=== PATIENT | female | born 1950 | race Caucasian/White ===

== ENCOUNTER 2016-07-27 05:30 | Day surgery (SDC) | payer OTHER ==
[~2016-07-27 05:30] MED LIST: CEFAZOLIN SODIUM 2 GRAM PREMIX 100 ML IV PRN; METRONIDAZOLE IV PRN; NS IV PRN
[2016-07-27] MEDS ORDERED: LACTATED RINGERS 1,000 ML ONE (05:39)
[2016-07-27] MEDS ORDERED: IV START KIT ONE (05:40)
[2016-07-27] MEDS ORDERED: CEFAZOLIN SODIUM 2 GRAM PREMIX 100 ML IV ONE (05:40)
[2016-07-27] MEDS ORDERED: PROPOFOL 20 ML IV ONE (06:52)
[2016-07-27] MEDS ORDERED: LIDOCAINE 2% (PRES FREE) 5 ML VIAL ONE (06:55)
[2016-07-27] MEDS ORDERED: ROCURONIUM BROMIDE 10 MG/ML DOSE IV ONE ×10 (06:55)
[2016-07-27] MEDS ORDERED: FENTANYL 100 MCG/2 ML VIAL ONE (06:57)
[2016-07-27] MEDS ORDERED: MIDAZOLAM HCL 5 MG/5 ML VIAL ONE (06:57)
[2016-07-27] MEDS ORDERED: ROPIVACAINE 0.5% 30 ML VIAL ONE (07:08)
[2016-07-27] MEDS ORDERED: NERVE BLOCK PROCEDURAL TRAY 1 EACH ONE (07:09)
[2016-07-27] MEDS ORDERED: LUBRICANT EYE OINTMENT (PF) 10 APPLIC TUBE ONE (08:24)
--- NOTE | 2016-07-27 08:57 | HP ---
DATE OF CLINIC: 07/24/2016 CLAU JACKSON : 1950 PLANNED PROCEDURE: Right Shoulder Arthroscopy with Possible Rotator Cuff Repair, Debridement, Biceps Tenodesis and Subacromial Decompression DATE OF SURGERY: July 27, 2016 SURGEON: Rashid Sánchez M.D. HISTORY OF PRESENT ILLNESS Clau Jackson is a 65 year old female. * Medication list reviewed with patient allergy list reviewed with patient. * Has not tried NSAIDS * Has not tried Physical Therapy * Has not tried Injections The patient is a 65-year-old left-hand dominant patient who I have treated for a left intra-articular distal radius fracture, who also has concomitant large rotator cuff tear on the right side. The patient has a known diagnosis of a right shoulder full large rotator cuff tear. The patient has been through a surgery previously by Dr. Thurston who performed a left shoulder attempted rotator cuff tear repair which was not repairable due to its large size. The patient has some concerns that this may be a similar problem for her on the right which is understandable and is here today to discuss the risks and benefits of non-operative and surgical treatment. She is here with her daughter, who will be helping take care of her after her shoulder. She understands that her mother's arm will be in a sling for close to six weeks depending on how much her rotator cuff tear is able to be repairable. The patient has an MRI demonstrating a full thickness rotator cuff tear with retraction of her supraspinatus with acute on chronic changes. The patient works for the state however, because of her inability to reach she really has not been working. The patient was previously scheduled for surgery, but suffered a cat bite of her left thumb and was put on antibiotics. She has been taking the Augmentin antibiotic twice daily with no problems and indicates that the swelling, redness and pain subsided after about 2-3 days taking antibiotics. She is able to demonstrate improved thumb mobility with no pain, except for pushing directly on the dorsal cat bite wound. She is now ready to proceed with surgery and on her right shoulder and is here today preoperatively. We discussed the risks and benefits of both non-operative and surgical treatment once again and she has elected to proceed. CURRENT MEDICATION * Aspirin 81 MG Tablet Chewable 1 once a day 0 days, 0 refills * Augmentin 500-125 MG Tablet as directed: one tab by mouth every 12 hours for left hand cat bite, 7 days, 0 refills * Crestor 5 MG Tablet 1 once a day 0 days, 0 refills * HydroCHLOROthiazide 25 MG Tablet 1 once a day 0 days, 0 refills * Indomethacin 25 MG Capsule three times a day 0 days, 0 refills * Lisinopril 5 MG Tablet as directed 0 days, 0 refills * PROzac 20 MG Capsule as directed 0 days, 0 refills * ZyrTEC Allergy 10 MG Tablet 1 once a day 0 days, 0 refills PAST MEDICAL/SURGICAL HISTORY Reported: Shoulder Arthroscopy Left shoulder scope/RCR 08/24/[address] Thurston. Medical: Cholesterol problems. Bladder disease and joint problems Arthritis. No reaction to anesthetics. Renal history, history of Arthritis, Depression, Hypertension, and Asthma. Surgical / Procedural: Replacement of a knee Left knee replacement done 05/15/[address] Thurston, Right knee replacement done 01/30/[address] Thurston and Arthroscopy bilateral knee scope 2000, 2007, Right knee scope 08/05/08. Medications: Current medication seems to be helping. Tests: Blood pressure was high. Physical Trauma: A fall due to slipping, tripping, or stumbling and trauma to the left wrist. Diagnoses: Hypertension. Asthma. Non-traumatic rupture of right rotator cuff tendon - [id number] full thickness tear noted on 02/2016 US. Depression Arthroscopy rt scope 07/2008. SOCIAL HISTORY Social history unchanged. Behavioral: No tobacco use, not a current smoker, and not chewing tobacco. Non-smoker never smoked. Smoking status: Never smoker. Alcohol: No consumption of alcohol. Drug Use: Not using drugs. Habits: Good exercise habits. Home Environment: Living arrangements. 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 Job does not require heavy labor. ALLERGIES * Sulfa Drugs * Vicodin Reaction: Does not help FAMILY HISTORY 2 children living 2 Cancer mother Family history unchanged Stroke syndrome father Family medical history Mother: Depression Father: Stroke REVIEW OF SYSTEMS Systemic: No fever and no recent weight change. Cardiovascular: No chest pain or discomfort and no palpitations. Pulmonary: No cough and no wheezing. Gastrointestinal: No nausea, no vomiting, no abdominal pain, and no diarrhea. Hematologic: No easy bleeding (no blood clots). Neurological: No motor disturbances and no sensory disturbances. Skin: No skin lesions and no rash. PHYSICAL FINDINGS * Vitals taken 07/24/2016 11:31 am BP-Sitting R 112/72 mmHg 100 - 120/56 - 80 BP Cuff Size Regular Pulse Rate-Sitting 88 bpm 50 - 100 Pulse Rhythm Regular Temp-Oral 97.8 F 96 - 101 Height 67 in 59 - 68 Pain Level 1 General Appearance: * Well developed. * In no acute distress. Eyes: General/bilateral: Extraocular Movements: * Normal. Lungs: * Clear to auscultation. * No wheezing was heard. * No rales/crackles were heard. Cardiovascular: Heart Rate and Rhythm: * Heart rate was normal. * Heart rhythm regular. Abdomen: Palpation: * Abdominal non-tender. Neurological: * Oriented to time, place, and person. Motor: * Dominant Hand = Left Hand. I examined the patient's right and left shoulders. She continues to have a limited shoulder on the right secondary to pain. The patient has known left shoulder rotator cuff tear, but does have fairly good motion on this side although weakness is present. PHYSICAL FINDINGS RIGHT EXTREMITY Shoulder General Appearance: no scars, no bruising, no swelling, no gross deformity AROM Forward Flexion: 0-70 degrees (limited by pain) ABD: 70 degrees (limited by pain) IR: Highest posterior anatomy reached with thumb: L4 PROM Forward Flexion: 0-150 degrees ABD: 0-110 degrees ER (0): 0-45 degrees Strength (0-5/5) Deltoid: 4/5 Triceps: 5/5 Biceps: 5/5 EPL,Finger Flexors,Finger Extensors,Wrist Flexors, Wrist Extensors,Intrinsics,Casework Supervisor: 5/5 Rotator cuff Supraspinatus: 4/5 (POSITIVE empty can test) Infraspinatus: 4/5 (POSITIVE for weakness and pain with resisted external rotation) Subscapularis: 5/5 (negative belly press test) Rotator Cuff Exam Neer's Sign: POSITIVE Hawkin's Sign: POSITIVE Superior Escape: Negative Biceps Exam Bicipital Groove Tenderness: POSITIVE Haworth's Sign: Negative Speed's Test: POSITIVE Muscle Deformity (Quique): Not present AC Exam AC Tenderness: Not tender AC Deformity: Negative Other Atrophy/Asymmetry: Normal Trapezius Pain: Negative No signs of any shoulder instability Vascular Exam Radial Pulse: 2+ Sensation Gross sensation to light touch in the distribution of Median, Ulnar and Radial nerves present PHYSICAL FINDINGS LEFT EXTREMITY Shoulder General Appearance: no scars, no bruising, no swelling, no gross deformity AROM Forward Flexion: 160 degrees ABD: 120 degrees IR: Highest posterior anatomy reached with thumb: L4 PROM Forward Flexion: 170 degrees ABD: 120 degrees ER (0): 50 degrees Strength (0-5/5) Deltoid: 5/5 Triceps: 5/5 Biceps: 5/5 EPL,Finger Flexors,Finger Extensors,Wrist Flexors, Wrist Extensors,Intrinsics,Casework Supervisor: 5/5 Rotator cuff Supraspinatus: 4/5 (POSITIVE empty can test) Infraspinatus:4/5 (POSITIVE for weakness and pain with resisted external rotation) Subscapularis: 4/5 (negative belly press test) Rotator Cuff Exam Neer's Sign: Negative Hawkin's Sign: POSITIVE Superior Escape: Negative Biceps Exam Bicipital Groove Tenderness: Negative Haworth's Sign: Negative Speed's Test: Negative Muscle Deformity (Quique): Not present AC Exam AC Tenderness: Not tender AC Deformity: Negative Other Atrophy/Asymmetry: Normal Medial Scapular Tenderness: Negative Trapezius Pain: Negative Vascular Exam Radial Pulse: 2+ Sensation Gross sensation to light touch in the distribution of Median, Ulnar, and Radial nerves present IMAGING Right shoulder ultrasound from 01/27/2016, ordered by Dr. Regan, demonstrates calcific tendonitis with evidence of thinning of the supraspinatus tendon, but no discreet full-thickness tear. Right shoulder x-ray from 02/09/2016 is reviewed with the patient and demonstrates a 5mm calcific density seen just superior to the humeral head on the AP views. X-rays performed on a February 09, 2016 were reviewed. These x-rays show a normal glenohumeral joint. There is a small area of calcification consistent with possibly calcific tendinitis. An ultrasound ordered on January 27, 2016 by Roger Johnson, demonstrates thinning of the supraspinatus, but no discrete full thickness tear. 04.10.2016--CXR: No acute cardiopulmonary problems appreciated An MRI ordered from April 13, 2016 shows retracted full thickness tear. There is little atrophy of the supraspinatus muscle belly best seen on the sagittal views. I showed the patient these images here today. Reviewing the MRI with the patient, the patient's sagittal MRI images show a robust rotator cuff. The patient has a little bit of fat stranding, but otherwise a very little signs of chronic atrophy. I would say that this is a Goutallier stage 1. On the axillary view the subscapularis is intact. The long head of the biceps is located in the group. The full thickness tear is approximately 3.5 cm which is a large tear. In looking at the biceps closer, especially on the axial images the patient may have a longitudinal split of the long head of the biceps. There is some slight posterior subluxation and some chronic tuberosity changes in the right shoulder. ASSESSMENT Right shoulder rotator cuff tear, [id number] with previous history of supraspinatus calcific tendonitis Right biceps tendonitis PLAN * OTHER OxyCODONE HCl 5 MG TABS, as directed: one tab by mouth every 4-6 hours as needed for pain, 7 days, 0 refills Keflex 500 MG CAPS, as directed: one tab by mouth every 8 hours until completed after surgery, 2 days, 0 refills Rashid Sánchez MD ordered the following therapy * Arthroscopy of the shoulder with possible RCR, debridement, biceps tenodesis and SAD -right THERAPY * Patient not eligible for fall risk assessment. SURGICAL CONSENT We have discussed surgical options including right shoulder arthroscopy with possible rotator cuff repair, arthroscopic debridement, possible biceps tenotomy vs tenodesis, and possible subacromial decompression vs non-operative management. I told the patient that I am not sure if her rotator cuff repair is possible. I think a partial repair is possible and explained how this would be performed. The patient may be a candidate for a biceps tenotomy and I explained the rationale for this. We then discussed the risks and benefits of the procedure. I described the risk of persistent shoulder pain, shoulder stiffness, infection, injury to surrounding nerves and blood vessels and anesthesia risks. The patient then signed the consent form and we discussed the post-op rehab plan. The patient was counseled in detail regarding the diagnosis, treatment options available, prognosis of each treatment option and the potential risks and complications. The risks of surgery include, but are not limited to, anesthetic , neurovascular complications, pulmonary embolism, deep vein thrombosis, wound dehiscence, failure of any or all of the discussed procedures, infection of the joint or surrounding soft tissue, need for revision surgery, chronic pain, limitations in activities of daily living, inability to return to work, and loss of normal range of motion or functional use of the extremity. There is the possibility of failure over time that may require additional operative or nonoperative treatment. The patient acknowledged that there are a number of perioperative risks not mentioned here and would still like to proceed. The patient is aware of and understands these risks, and wishes to proceed with the proposed surgical procedure and other procedures as indicated at the time of surgery. The preoperative instructions were reviewed with the patient and all questions were answered. CARE TEAM AMANDA Mata Physician Cad Programmer Ana Miles NP Nurse Practitioner Kane Walsh MD [facility]/sg
[2016-07-27] MEDS ORDERED: HYDROMORPHONE HCL 1 MG/ML SYRINGE IV PRN (09:38)
[2016-07-27] MEDS ORDERED: HYDRALAZINE HCL 20 MG/1 ML VIAL IV PRN (09:38)
[2016-07-27] MEDS ORDERED: PROMETHAZINE HCL 25 MG/ML VIAL IM PRN (09:38)
[2016-07-27] MEDS ORDERED: ON-Q PUMP/ROPIVACAINE 0.2% 450 ML in PREMIX BAG 1 EACH NB PRN (09:38)
[2016-07-27] MEDS ORDERED: NALOXONE HCL 0.4 MG/ML VIAL IV PRN (09:38)
[2016-07-27] MEDS ORDERED: ONDANSETRON 4 MG/2ML 2 ML VIAL IV PRN ×2 (09:38→10:47)
[2016-07-27] MEDS ORDERED: MEPERIDINE 25 MG/ML SYRINGE IV PRN (09:38)
[2016-07-27] MEDS ORDERED: ATROPINE SULFATE 0.4 MG/1 ML VIAL IV PRN (09:38)
[2016-07-27] MEDS ORDERED: FENTANYL 100 MCG/2 ML VIAL IV PRN (09:38)
[2016-07-27] MEDS ORDERED: LACTATED RINGERS 1,000 ML IV SCH ×2 (09:45→10:47)
[2016-07-27] MEDS ORDERED: DEXAMETHASONE SOD PHOS 4 MG/1 ML VIAL ONE ×2 (09:49)
[2016-07-27] MEDS ORDERED: ONDANSETRON 4 MG/2ML 2 ML VIAL ONE (09:49)
--- NOTE | 2016-07-27 10:05 | PCMBPN ---
Brief Post Op Note: Date of Procedure: 07/27/16 Preoperative Diagnosis: 1. right shoulder rotator cuff tear and biceps tendonitis Postoperative Diagnosis: 1. right shoulder non-repairable rotator cuff tear and partial long head of the biceps tear Procedure: right shoulder arthroscopic biceps tenotomy and arthroscopic debridement Surgeon: Rashid Sánchez MD Assist: Jam DE Anesthesia: GETA, right intrascalene nerve block and catheter for post-op pain relief Findings: pt had a large rotator cuff tear of the supraspinatus that was not repairable after a debrided and attempted mobilization was performed. The patient's subscapularis was intact. SHe had a partial tear of the long head of the biceps which was treated with a biceps tenotomy. Condition: extubated, stable vitals, transferred to pacu Complications: None IV Fluids: 900 mLs of LR Urine Output: 100 mLs Estimated Blood Loss: 10 mLs Tourniquet Time: [N/A] Specimens: [N/A] Implants: None Drains: [N/A] PLAN: NWB on the RUE. SLing for comfort. Oxycodone for pain control and Keflex for post-op abx.
[2016-07-27] MEDS ORDERED: ON-Q PUMP/ROPIVACAINE 0.2% 450 ML ONE (10:15)
[2016-07-27] MEDS ORDERED: LABETALOL HCL 5 MG/ML 20ML VIAL IV ONE (10:17)
[2016-07-27] MEDS: LABETALOL HCL 5 MG/ML 20ML VIAL IV PRN ×2 (10:24→10:33)
[2016-07-27] MEDS ORDERED: GLYCOPYRROLATE 0.2 MG/ML 1ML VIAL ONE ×3 (10:34)
[2016-07-27] MEDS ORDERED: NEOSTIGMINE METHYLSULFATE 1 MG/ML DOSE ONE ×4 (10:34)
[2016-07-27] MEDS ORDERED: MORPHINE SULFATE 2 MG/ML SYRINGE IV PRN (10:47)
[2016-07-27] MEDS ORDERED: MORPHINE SULFATE 10 MG/ML SYRINGE IV PRN (10:47)
[2016-07-27] MEDS ORDERED: MORPHINE SULFATE 4 MG/ML SYRINGE IV PRN (10:47)
[2016-07-27] MEDS ORDERED: ACETAMINOPHEN 325 MG TABLET PO PRN (10:47)
[2016-07-27] MEDS ORDERED: OXYCODONE HCL 5 MG TABLET PO PRN (10:47)
[2016-07-27] MEDS ORDERED: DIPHENHYDRAMINE HCL 50 MG/1 ML VIAL IV PRN (10:47)
--- NOTE | 2016-07-28 09:35 | OP ---
YELENA JACKSON : 1950 V [id number] DATE OF PROCEDURE: July 27, 2016 PREOPERATIVE DIAGNOSIS: Right shoulder rotator cuff tear acute on chronic and biceps tendonitis. POSTOPERATIVE DIAGNOSIS: Right shoulder non-reparable rotator cuff tear and partial long head of the biceps tear. PROCEDURE: Right shoulder arthroscopic biceps tenotomy and arthroscopic debridement of non-reparable rotator cuff tear. SURGEON: Rashid Sánchez M.D. PROCESS COORDINATOR: Leon DE ANESTHESIA: General along with a right interscalene nerve block and catheter for postop pain relief. FINDINGS: The patient had a large rotator cuff tear of the supraspinatus that was very stiff despite being mobilized. Her rotator cuff would not allow a tension-free repair. The patient had an intact subscapularis as well as some of the infraspinatus was still in place. The patient did have a partial tear of the long head of the biceps as well as normal appearing articular surfaces of the humeral head and glenoid. CONDITION: The patient was extubated with stable vital signs and transferred to the PACU. COMPLICATIONS: None FLUIDS: 900 mL of LR URINE OUTPUT: 100 mL ESTIMATED BLOOD LOSS: 10 mL TOURNIQUET TIME: N/A SPECIMENS: N/A DRAINS: N/A IMPLANTS: None PLAN: The patient will be nonweightbearing on the right upper extremity. She was given preoperatively Rx's for oxycodone, Keflex for postop antibiotics and sling for comfort. INDICATIONS: The patient is a 65-year-old female who is an established patient of our practice who sustained a fall while at work while going up some stairs. This resulted in left distal radius fracture which has been previously been treated surgically as well as increased pain in her right shoulder. The patient has done well from her left wrist surgery however, she continues to have pain. This was thought to be an [id number] tear. I spoke to her about the concern that this may not be reparable similar to her left side. I told her the risks associated with surgery as well as the possible benefits including decreased pain, possible increased motion however, I told her that the risk of not being able to repair it is a possibility as well as possible anesthesia risks and risks of injury to surrounding nerves and blood vessels. After reviewing these risks and others with the patient, she opted to proceed with surgery. PROCEDURE DESCRIPTION: The patient was seen in the preoperative area. The right arm was signed with the word "Yes" and my initials. I updated and signed the H&P and confirmed with the patient that the consent form matched our proposed procedure. The patient was seen by the anesthesia team who reviewed with the patient about the risks and benefits of right interscalene block and catheter. The patient agreed to have it placed under ultrasound guidance. It was placed without difficulty. The patient was transferred from the preoperative area to the operating theater where they were transferred from the stretcher to the operating room bed. Patient had intraoperative SCD's placed for DVT prophylaxis. The patient had a safety belt placed and then the patient was put to sleep without any problems. The patient was then placed in the left lateral decubitus position making sure an axillary roll was placed and all bony prominences were well-padded. The patient was rotated so that their back was approximately 30 degrees tilted posterior and the bed was turned 90 degrees in the room. The patient was then prepped and draped in sterile fashion first with a Betadine scrub, paint and then chlorhexidine. The patient was then placed in balanced suspension with their arm in the Arthrex STAR sleeve. At this point we performed a final time out confirming that the right side was the correct side, everyone in the room confirmed that the procedure matched the consent form and that xrays and MRI images were on the imaging board. We confirmed that Ancef, 2 grams, had been given to the patient approximately 30 minutes prior to the final time out. At this time a spinal needle was used with 30 mL with normal saline to insufflate the joint through the posterior portal. Once the shoulder was insufflated a #15 blade was used to incise the skin by the posterior portal and the scope trocar was placed without incident. At this point the patient's anterior portal was made using a spinal needle from an outside-in technique first using a spinal needle to identify the position in the rotator interval followed by an incision with another #15 blade, placement of a switching stick and a 7mm cannula. Once this was in place a 15-point exam was performed using an arthroscopic probe viewing from posterior to anterior and anterior to posterior. The patient's diagnostic arthroscopy demonstrated normal appearing cartilaginous surface of the humeral head and glenoid. The patient had a nice appearing subscapularis with a large L-shaped tear of the supraspinatus retracted back to the glenoid. I made 2 lateral portals and placed a traction suture in the rotator cuff itself and used a grasper to hold this in place as I debrided both above and below the supraspinatus tendon attempting to mobilize it. After performing this arthroscopic debridement while viewing from the intraarticular space, the patient still had limited motion. I examined the long head of the biceps which had a partial thickness tear. I examined this with my probe and thought the patient would be best served with an arthroscopic biceps tenotomy. This was performed with a VAPR wand. Next, I moved my scope to the subacromial space. I used a 70 degree scope and placed my scope anteriorly continuing to perform my debridement to see if the posterior portion of the supraspinatus and infraspinatus could be mobilized. After working on this I did not think that the tendon, if it was mobilized all the way over to even medializing the footprint, that it would be reparable. After confirming hemostasis I was ready to close accepting that this was a non-reparable tear, even with doing an interval slide. I then irrigated the wound closing the skin with interrupted 4-0 Nylon sutures. Then the dressings were placed including Xeroform, 4x4, ABD along with a cryo-cuff and the patient's arm was placed in a sling. All needle and sponge counts were correct. The patient was awoken without difficulty, taken to the recovery room where the patient had good pain control. The patient will be in a sling for comfort. We will start her on ROM within a week to 2 weeks after surgery and see if her pain does improve from her partial thickness biceps tear. The patient was given a Rx for oxycodone and Keflex. VARUN/hossein CC: [facility]
== END 2016-07-27 13:45 | disposition home or self-care (01) ==
LOC: SDC 05:30
PROVIDERS: ATTEND Orthopaedic Surgery
DX: M75.121 Complete rotator cuff tear or rupture of right shoulder, not specified as traumatic (principal); M75.21 Bicipital tendinitis, right shoulder; G47.33 Obstructive sleep apnea (adult) (pediatric); E78.00 Pure hypercholesterolemia, unspecified; I10 Essential (primary) hypertension; J45.909 Unspecified asthma, uncomplicated; Z79.82 Long term (current) use of aspirin

== ENCOUNTER 2016-09-09 17:08 | Emergency (ER) | payer OTHER ==
[2016-09-09 19:45] LABS: ABSOLUTE NEUTROPHIL COUNT 5.9 K/mm3 (1.8-7.7); BASO # 0.1 K/mm3 (0.0-0.2); BASO % 0.6 % (0.2-1.0); EOS # 0.4 (0.0-0.5); EOS % 4.4 % (0.9-2.9); HEMATOCRIT 39.1 % (37.0-47.0); HEMOGLOBIN 12.3 gm/l (12.0-16.0); IMM NEUT% 0.2 % (0-1); LYMPH # 2.8 (1.0-4.8); LYMPH % 27.5 % (15-45); MEAN CELL VOLUME 93.1 fl (81.0-99.0); MEAN CORPUSCULAR HEMOGLOBIN 29.3 pg (27.0-31.0); MEAN CORPUSCULAR HGB CONC 31.5 g/dl (33.0-37.0); MONO # 0.9 (0.0-0.8); MONO % 9.2 % (4-12); NEUT % 58.1 % (43-75); PLATELET COUNT 297 K/mm3 (130-400); RED CELL DISTRIBUTION WIDTH 13.4 % (11.5-14.5)
[2016-09-09] MEDS ORDERED: KETOROLAC TROMETHAMINE 15 MG/ML VIAL ONE (19:46)
[2016-09-09 20:07] LABS: BLOOD UREA NITROGEN 27 mg/dL (7-25); BUN/CREATININE RATIO 30 (6-20); C-REACTIVE PROTEIN < 0.3 mg/dl (<1.0); CALCIUM 10.4 mg/dL (8.6-10.3); GLOMERULAR FILTRATION RATE 63 mL/min (60-85)
[2016-09-09] MEDS ORDERED: OXYCODONE HCL 5 MG TABLET ONE (21:05)
--- NOTE | 2016-09-10 07:59 | RAD ---
HIP - RIGHT 2 VW + AP PELVIS COMPARISON: None HISTORY: Right hip pain. No injury. FINDINGS: Views: AP pelvis. Right hip AP and lateral. Bones: Normal. Joints: Narrowing and osteophytes, right hip mild, left hip severe. Normal symphysis pubis. Normal sacroiliac joints. Soft tissues: Normal. IMPRESSION: 1. Right hip mild osteoarthritis. No acute finding. 2. Left hip severe osteoarthritis.
== END 2016-09-09 21:24 | disposition home or self-care (01) ==
LOC: ED 17:08
DX: M25.551 Pain in right hip (principal); J45.909 Unspecified asthma, uncomplicated; I10 Essential (primary) hypertension
CPT/HCPCS: 86141; 85025; 80048; 85651; 73502; 99283 ×2; 96374; A9270; J1885